=== PATIENT | male | born 1990 | race Caucasian/White ===

== ENCOUNTER 2018-02-11 09:27 | Emergency (ER) | payer MEDICAID, OTHER ==
[2018-02-11 10:44] VITALS: BP 133/84; PULSE 104; RESP 18; TEMP 98.2; O2SAT 99
[2018-02-11] MEDS ORDERED: KETOROLAC TROMETHAMINE 30 MG/ML SOL IM ONE (11:05)
[2018-02-11] MEDS ORDERED: KETOROLAC TROMETHAMINE 30 MG/ML SOL ONE (11:10)
== END 2018-02-11 11:48 | disposition home or self-care (01) | DRG 603 ==
LOC: ED 09:27
DX: L05.01 Pilonidal cyst with abscess (principal)
CPT/HCPCS: 96372; 99282; 99283; J1885

== ENCOUNTER 2018-09-01 15:12 | Emergency (ER) | payer BC, MEDICAID, OTHER ==
[2018-09-01 15:12] VITALS: O2SAT 99
[2018-09-01 16:33] VITALS: PULSE 74; RESP 18; TEMP 97.4
[2018-09-01 17:18] VITALS: BP 154/85
== END 2018-09-01 16:43 | disposition home or self-care (01) | DRG 563 ==
LOC: ED 15:12
DX: S93.401A Sprain of unspecified ligament of right ankle, initial encounter (principal)
CPT/HCPCS: 73630; 99282; 99283